=== PATIENT | male | born 1970 | race Caucasian/White ===

== ENCOUNTER → 2021-07-03 | Day surgery (SDC) | payer MEDICARE, OTHER ==
[~2021-07-03] VITALS: Ht 177.8 cm; Wt 113.5 kg
[~2021-07-03] MED LIST: ASPIRIN EC81 MG PO; ATORVASTATIN CA80 MG PO; COZAAR100 MG PO; DIAZEPAM 5MG TAB5 MG PO; EMLA CREAM5 GM TOP; HCTZ12.5 MG PO; IBUPROFEN800 MG PO; NORCO 5-325 TA1 EACH PO; NORVASC5 MG PO; ONDANSETRON ODT8 MG PO; PERCOCET 10-321 EACH PO; REQUIP1 MG PO; REVATIO 20MG TA20 MG PO; VENTOLIN HFA IN18 GM INH; ZYPREXA 5MG TABL5 MG PO
[2021-07-03 10:20] LABS: HCT 48.4 % (42.0-52.0); HGB 16.2 g/dl (13.2-18.0); MCH 31.1 pg (25.0-31.0); MCHC 33.5 g/dL (32.0-36.0); MCV 92.9 fL (78.0-100.0); MPV 10.4 fL (6.0-9.5); RBC 5.21 M/uL (4.70-6.00); RDW 15.9 % (11.5-14.0); WBC 7.3 K/uL (4.0-10.5)
[2021-07-03 10:55] LABS: ALBUMIN 3.4 g/dL (3.4-5.0); BILIRUBIN - TOTAL 0.6 mg/dL (0.2-1.0); BUN/CREAT RATIO (CALC) 16.8 RATIO; CREATININE 1.25 mg/dL (0.67-1.17); GLOBULIN (CALCULATION) 3.5 g/dL; POTASSIUM 5.3 mmol/L (3.5-5.1); TOTAL PROTEIN 6.9 g/dL (6.4-8.2)
== END | disposition home or self-care (01) ==
LOC: FAS 08:49
PROVIDERS: Surgery
DX: K64.3 Fourth degree hemorrhoids (principal); I10 Essential (primary) hypertension; E78.5 Hyperlipidemia, unspecified; F31.9 Bipolar disorder, unspecified; Z87.891 Personal history of nicotine dependence; Z79.82 Long term (current) use of aspirin; Z79.899 Other long term (current) drug therapy
CPT/HCPCS: 36415; 80053; 93005; J1100; J1885; J2250; J2405; J2704; J3010; J7120